=== PATIENT | female | born 1945 | race Caucasian/White ===

== ENCOUNTER 2020-06-11 18:49 | Inpatient (IN) | payer MEDICARE, BC ==
[~2020-06-11] VITALS: Ht 165.1 cm; Wt 48.5 kg
--- NOTE | 2020-06-11 20:03 | NUR ---
Patient going to room 137 A
--- NOTE | 2020-06-11 21:42 | NUR ---
Sitter at bedside, direct observation ongoing.
[2020-06-11 21:47] LABS: BASOPHILS # (AUTO) 0.1 K/uL (0.0-8.0); BASOPHILS % (AUTO) 0.8 % (0.0-2.0); EOSINOPHILS # (AUTO) 0.2 K/uL (0.0-0.7); EOSINOPHILS % (AUTO) 2.7 % (0.0-7.0); HEMATOCRIT 33.9 % (31.2-41.9); HEMOGLOBIN 11.4 g/dL (10.9-14.3); LYMPHOCYTES % (AUTO) 30.8 % (20.5-51.5); MEAN CORPUSCULAR HGB CONC 34 g/dL (32.3-35.6); MEAN CORPUSCULAR VOLUME 92.1 fL (75.5-95.3); MONOCYTES # (AUTO) 0.6 K/uL (2.0-10.0); MONOCYTES % (AUTO) 9.5 % (0.0-11.0); NEUTROPHILS # (AUTO) 3.7 K/uL (1.8-8.9); NEUTROPHILS % (AUTO) 56.2 % (38.5-71.5); PLATELET COUNT (AUTO) 293 K/uL (179-408); RED BLOOD CELL COUNT(AUTO) 3.68 MIL/uL (3.63-4.92); WHITE BLOOD COUNT (AUTO) 6.6 K/uL (3.8-11.8)
[2020-06-11 21:49] LABS: CARBON DIOXIDE 25 mmol/L (21-32); CHLORIDE 103 mmol/L (98-107); CREATININE 0.6 mg/dL (0.6-1.3); GLUCOSE 109 mg/dL (74-106); POTASSIUM 3.7 mmol/L (3.5-5.1); UREA NITROGEN, BLOOD 13 mg/dL (7-18)
[2020-06-11 21:55] LABS: ALANINE AMINOTRANSFERASE 44 U/L (14-59); ALKALINE PHOSPHATASE 48 U/L (50-136); ASPARTATE AMINOTRANSFERASE 33 U/L (15-37); BILIRUBIN,DIRECT 0.1 mg/dL (0.0-0.2); BILIRUBIN,TOTAL 0.3 mg/dL (0.2-1.0); CREATINE KINASE, TOTAL 235 U/L (26-192); TOTAL PROTEIN, SERUM 6.5 g/dL (6.4-8.2)
[2020-06-11 22:01] LABS: ACETAMINOPHEN < 2.0 ug/mL (10-30)
[2020-06-11 22:02] LABS: THYROID STIMULATING HORMONE 2.251 mIU/mL (0.358-3.740)
[2020-06-11 22:14] LABS: ETHANOL < 3 MG/DL (0-0)
--- NOTE | 2020-06-11 22:41 | NUR ---
[place] Marisa Sahni [place] [facility]
--- NOTE | 2020-06-11 22:55 | NUR ---
Pt. admitted to [facility] , under care of Dr. Hunt/Nicolasa Michelle Belongs List completed
--- NOTE | 2020-06-11 23:00 | NUR ---
GPS Admission: Patient is a 74 year old female, brought in to the hospital by ambulance from [facility] in [place]. Patient is admitted on a 5150 as DTS. As per the hold, patient has had multiple attempts to harm herself . Recently endorsed suicidal ideation with severe depression. Patients plan was to cut or poison herself. Upon face to face evaluation, patient appeared depressed and anxious. Patient did not want to give her phone up. When asked about her suicidal ideations, patient minimized it and said the superficial cut on the left wrist were "Scratches". Patient denied wanting to hurt herself and quickly jumped off the topic. This signwriter oriented patient to the environment and provided the advisement and Rights handout. Dr. Hunt was called and signwriter was informed that Dr. Suarez was covering. Dr. Suarez called as well as Dr. Michelle. Orders received. Patients VS are stable on admission and patient was given a PRN for sleep per request. Monitoring patient for safety and frequent rounding is being done. Patient refused shower at this time. No acute issues noted.
[2020-06-11] MEDS ORDERED: MAGNESIUM HYDROXIDE 30 ML LIQUID UDC PO PRN (23:15)
[2020-06-11] MEDS ORDERED: ACETAMINOPHEN 325 MG TABLET PO PRN (23:15)
[2020-06-11] MEDS ORDERED: TEMAZEPAM 7.5 MG CAPSULE PO PRN (23:15)
[2020-06-11] MEDS ORDERED: MAG HYDROX/AL HYDROX/SIMETH 30 ML LIQUID UDC PO PRN (23:15)
[2020-06-11] MEDS ORDERED: LORAZEPAM 1 MG TABLET PO PRN (23:15)
[2020-06-12] MEDS ORDERED: QUET50TA PO (00:35)
[2020-06-12] MEDS ORDERED: METO25TA6 PO (00:35)
[2020-06-12] MEDS ORDERED: LISI-656 PO (00:35)
[2020-06-12] MEDS ORDERED: ATOR40TA PO (00:35)
[2020-06-12] MEDS ORDERED: QUET25TA PO (00:35)
[2020-06-12] MEDS ORDERED: RIVA20TA PO (00:35)
[2020-06-12] MEDS ORDERED: ASPI81TA31 PO (00:35)
[2020-06-12 00:53] VITALS: BP 139/66
--- NOTE | 2020-06-12 05:35 | NUR ---
Patient slept 5.45 hours last night and is still asleep. Continuing to monitor for safety.
[2020-06-12 07:30] VITALS: BP 133/63
[2020-06-12 08:46] LABS: BILIRUBIN,TOTAL 0.4 mg/dL (0.2-1.0); CREATININE 0.7 mg/dL (0.6-1.3); POTASSIUM 3.8 mmol/L (3.5-5.1); TOTAL PROTEIN, SERUM 6.1 g/dL (6.4-8.2)
--- NOTE | 2020-06-12 09:44 | NUR ---
Pt received lying in bed resting comfortably. Denies pain or discomfort. Pt denies SI. states this is all a misunderstanding. "I have no intention of hurting myself or killing myself." States laceration on left wrist was a way to get attention from her kids. Minimizing severity. Pt appears in a depressed mood, speaking in low tone. Therapeutic communication provided.
[2020-06-12] MEDS: LISINOPRIL 5 MG TABLET PO SCH (12:04)
[2020-06-12] MEDS: METOPROLOL TARTRATE 25 MG TABLET PO SCH ×2 (12:04→16:26)
[2020-06-12] MEDS: ASPIRIN 81 MG TAB.CHEW PO SCH (12:04)
[2020-06-12] MEDS: RIVAROXABAN 15 MG TABLET PO SCH ×2 (12:05→16:26)
[2020-06-12 16:00] VITALS: BP 124/59
[2020-06-12 20:02] VITALS: BP 137/67
[2020-06-12] MEDS: MIRTAZAPINE 15 MG TABLET PO SCH (20:25)
[2020-06-12] MEDS: ATORVASTATIN 40 MG TABLET PO SCH (20:25)
[2020-06-12] MEDS: QUETIAPINE FUMARATE 25 MG TABLET PO SCH (20:25)
--- NOTE | 2020-06-13 05:38 | NUR ---
Received patient last night on phone talking with her son. Patient is medication compliant but apprehensive about the medications. Education and reassurance provided. Patient is isolative and has minimal interaction with her peers. Total sleep last night was 9.30 hours. Denies SI and HI, but admits to feeling depressed. Continuing to ensure a safe environment and rounding is being done frequently.
[2020-06-13 07:30] VITALS: BP 108/54
[2020-06-13] MEDS: ASPIRIN 81 MG TAB.CHEW PO SCH (08:08)
[2020-06-13] MEDS: METOPROLOL TARTRATE 25 MG TABLET PO SCH ×2 (08:08→16:19)
[2020-06-13] MEDS: RIVAROXABAN 15 MG TABLET PO SCH ×2 (08:12→16:19)
[2020-06-13] MEDS: LISINOPRIL 5 MG TABLET PO SCH (08:13)
[2020-06-13 16:07] VITALS: BP 101/64
[2020-06-13 19:58] VITALS: BP 106/60
--- NOTE | 2020-06-13 20:00 | NUR ---
Received patient in her room reading a book. She is noted A/O x 3 able to verbalized feelings. She is noted with Sad face. However, she denied SI. She stated, I am not going to harm myself. I don't want to . I just said that the other day because I was feeling depressed". when asked why she was depressed, she stated, "A few things that are going in my life i felt it was too much that day but i am okay now and i hope I can go elizabet,e tomorrow". patient was reassured for hwer safety. encourage to continue verbalizing feeling. Pt is able to verbally CFS. safety and fall precaution in place. V/S stable at this time. will continue to monitor
[2020-06-13] MEDS: MIRTAZAPINE 15 MG TABLET PO SCH (20:39)
[2020-06-13] MEDS: QUETIAPINE FUMARATE 25 MG TABLET PO SCH (20:39)
[2020-06-13] MEDS: ATORVASTATIN 40 MG TABLET PO SCH (20:39)
[2020-06-14 07:30] VITALS: BP 118/49
[2020-06-14] MEDS: ASPIRIN 81 MG TAB.CHEW PO SCH (08:39)
[2020-06-14] MEDS: LISINOPRIL 5 MG TABLET PO SCH (08:39)
[2020-06-14] MEDS: METOPROLOL TARTRATE 25 MG TABLET PO SCH ×2 (08:40→16:29)
[2020-06-14] MEDS: RIVAROXABAN 15 MG TABLET PO SCH ×2 (08:41→16:39)
--- NOTE | 2020-06-14 10:13 | NUR ---
DENTON Family Contact: DENTON called and left a voicemail for patient's sister Chuyita ([phone]). DENTON spoke with patient's son, Aneesh Franco ([phone]) who is involved in the patient's care and discussed treatment and discharge plan. Aneesh stated that he will pick her up and take her back home upon discharge. Aneesh shared that the patient ahs a lot of family and friends who all live in the same community and are all very supportive and are there for her.
--- NOTE | 2020-06-14 10:13 | NUR ---
DENTON Initial Discharge Plan: Patient currently resides at home [address] [place] [address] , [place], [place] [address] ([phone]) lives with sister, Chuyita ([phone]). Patient's son, Aneesh Franco ([phone]) is involved in the patient's care and will be picking up the patient upon discharge and take her back home. DENTON will continue to work with patient, family, and MD to ensure a safe and proper discharge plan.
--- NOTE | 2020-06-14 10:16 | NUR ---
Firearms Report: Deoiling Machine Operator completed and submitted a [employer] firearms report for 5150 danger to self certification. A copy of report has been placed in patient chart.
[2020-06-14 15:05] VITALS: BP 93/44
--- NOTE | 2020-06-14 16:09 | NUR ---
DENTON Family Contact: SW spoke with patient's son, Aneesh Franco ([phone]) and shared that the psychiatrist discussed the importance of the patient being in the hospital for appropriate treatment for her depression before returning home. Aneesh was understanding and stated that they sent some books and clothes for the patient however they were not given to her. This sw passed the message on to Nurse Wenceslao who stated she will inform Nurse Araujo.
[2020-06-14 19:45] VITALS: BP 104/54
[2020-06-14] MEDS: QUETIAPINE FUMARATE 25 MG TABLET PO SCH (20:13)
[2020-06-14] MEDS: MIRTAZAPINE 15 MG TABLET PO SCH (20:13)
[2020-06-14] MEDS: ATORVASTATIN 40 MG TABLET PO SCH (20:13)
--- NOTE | 2020-06-15 06:51 | NUR ---
GPS: Pt.slept for 9.15 minutes. Remains sad but denies wanting to hurt self. Re-assured prn. Encouraged to attend daily activities/group therapy. Safe environment provided.
[2020-06-15 07:30] VITALS: BP 125/57
[2020-06-15] MEDS: LISINOPRIL 5 MG TABLET PO SCH (08:44)
[2020-06-15] MEDS: METOPROLOL TARTRATE 25 MG TABLET PO SCH ×2 (08:44→17:44)
[2020-06-15] MEDS: ASPIRIN 81 MG TAB.CHEW PO SCH (08:44)
[2020-06-15] MEDS: RIVAROXABAN 15 MG TABLET PO SCH ×2 (09:00→17:45)
[2020-06-15 16:26] VITALS: BP 111/61
[2020-06-15 20:00] VITALS: BP 107/49
[2020-06-15] MEDS: ATORVASTATIN 40 MG TABLET PO SCH (20:26)
[2020-06-15] MEDS: MIRTAZAPINE 15 MG TABLET PO SCH (20:26)
[2020-06-15] MEDS: QUETIAPINE FUMARATE 25 MG TABLET PO SCH (20:26)
[2020-06-16 07:30] VITALS: BP 98/54
[2020-06-16] MEDS: ASPIRIN 81 MG TAB.CHEW PO SCH (08:29)
[2020-06-16] MEDS: RIVAROXABAN 15 MG TABLET PO SCH ×2 (08:34→16:24)
[2020-06-16] MEDS: METOPROLOL TARTRATE 25 MG TABLET PO SCH ×2 (08:36→16:25)
[2020-06-16] MEDS: LISINOPRIL 5 MG TABLET PO SCH (08:37)
--- NOTE | 2020-06-16 14:35 | NUR ---
SW Coordination of Care: This gag writer contacted patient's primary doctors office ([facility]) Dr. El Castro [address] [facility] [address], [place] [address] ([phone]) and left a voicemail to follow up with son Salvador ([phone]) to schedule an appointment for a follow-up. This SW requested a psychiatrist referral.
--- NOTE | 2020-06-16 14:36 | NUR ---
SW Discharge Note: Patient will be discharged home [address] [place] [address] ([phone]). Patients sonAneesh ([phone]) will slat pickler patient today at 4:30-5pm. Patient is alert and oriented x4 and is aware and agreeable with discharge plan. Patient denies suicidal or homicidal ideation. Patient presents with euthymic mood and congruent affect. Patient will be following up with her Service Desk Specialist Dr. El Castro [address] [facility] [address], [place] [address] ([phone]) and a voicemail was left for the clinic to follow up with patient and sonYoel post discharge and refer for psychiatrist. Patient is referred to [address] [address] ([phone]), [facility] department for intake process ([phone]), patients Yoel cochran stated he will call and make an intake evaluation appointment.
[2020-06-16 16:00] VITALS: BP 118/53
[2020-06-16 16:25] VITALS: BP 118/53
--- NOTE | 2020-06-16 18:03 | NUR ---
Called [facility] pharmacy with patient's prescriptions. Spoke with pharmacist, Juliet ([phone]) [phone] [address].
--- NOTE | 2020-06-16 18:28 | NUR ---
Pt is being discharged, pt's son Aneesh is here to pick her up. VS are stable, pt is willing to go. No distress noted. Discharge instructions given including prescription medications and follow up appointments. Caregiver verbalizes understanding.
[2020-07-03] MEDS ORDERED: RIVAROXABAN 10 MG TABLET PO SCH (09:00)
== END 2020-06-16 18:00 | disposition home or self-care (01) | DRG 885 ==
LOC: ER 18:49 → GPS 22:45
PROVIDERS: ADMIT Psychiatry & Neurology Psychiatry; ATTEND Nurse Practitioner Acute Care
DX: F33.2 Major depressive disorder, recurrent severe without psychotic features (principal); F01.50 Vascular dementia, unspecified severity, without behavioral disturbance, psychotic disturbance, mood disturbance, and anxiety; E43 Unspecified severe protein-calorie malnutrition; E87.1 Hypo-osmolality and hyponatremia; Z68.1 Body mass index [BMI] 19.9 or less, adult; E78.5 Hyperlipidemia, unspecified; F41.9 Anxiety disorder, unspecified; Z86.711 Personal history of pulmonary embolism; I10 Essential (primary) hypertension; T14.91XD Suicide attempt, subsequent encounter; Z79.82 Long term (current) use of aspirin
CPT/HCPCS: 36415; 70450; 83921; 84443; 85025; 93005; A4663; G0480